=== PATIENT | male | born 1990 | race Caucasian/White ===

== ENCOUNTER 2025-03-23 23:12 | Emergency (ER) | payer OTHER ==
[~2025-03-23] VITALS: Ht 172.7 cm; Wt 68.2 kg
[2025-03-23 23:29] VITALS: TEMP 98
[2025-03-23 23:40] VITALS: BP 121/73; PULSE 122; RESP 18; O2SAT 98
== END 2025-03-24 00:45 ==
LOC: EMS 23:14
DX: S80.211A Abrasion, right knee, initial encounter (principal); F15.90 Other stimulant use, unspecified, uncomplicated; Z65.3 Problems related to other legal circumstances; V19.9XXA Pedal cyclist (driver) (passenger) injured in unspecified traffic accident, initial encounter; Y93.89 Activity, other specified; Y92.89 Other specified places as the place of occurrence of the external cause; Y99.8 Other external cause status
CPT/HCPCS: 99283; Z7502